=== PATIENT | male | born 1950 | race Caucasian/White ===

== ENCOUNTER 2018-07-11 23:00 | Inpatient (IN) | payer MEDICARE ==
[~2018-07-11] VITALS: Ht 193 cm; Wt 137.0 kg
[2018-07-11 23:21] LABS: BASO # 0.1 x10^3/uL (0.0-0.2); BASO % 1 % (0-3); EOS # 0.2 x10^3/uL (0.0-0.7); EOS % 3 % (0-3); HEMOGLOBIN 15.4 g/dL (13.0-17.5); LYMPH # 1.6 x10^3/uL (1.0-4.8); LYMPH % 20 % (24-48); MEAN CORPUSCULAR HEMOGLOBIN 30 pg (25-35); MEAN CORPUSCULAR HGB CONC 34 g/dL (31-37); MEAN CORPUSCULAR VOLUME 86 fL (79-100); MONO # 0.6 x10^3/uL (0.0-1.1); MONO % 8 % (0-9); NEUT # 5.5 x10^3uL (1.8-7.7); NEUT % 68 % (31-73); PLATELET COUNT 190 x10^3/uL (140-400); RED BLOOD COUNT 5.22 x10^6/uL (4.30-5.70); RED CELL DISTRIBUTION WIDTH 14.4 % (11.5-14.5)
--- NOTE | 2018-07-11 23:28 | PHYS DOC ---
Adult General Chief Complaint Chief Complaint: TRAUMA ALERT HPI HPI Patient is a 68 yo diabetic male who presents w/ EMS after falling on ice in a parking lot across from a family member's home around 2200. He reports that he did hit his head but did not lose consciousness. Patient also reports he is on eliquis following DVT in R leg 2 months prior and aspirin. He admits to some etoh use this evening and last ate at 1999. He reports he has diabetes and has significant neuropathy, therefore he is complaining of minimal pain. Per EMS patient tried to walk following accident, however he noticed his left foot felt odd. Family called EMS and patient was transported to ED. Review of Systems Review of Systems Constitutional: Denies fever or chills [] Respiratory: Denies cough or shortness of breath [] Cardiovascular: Denies chest pain. Musculoskeletal: Denies back pain or joint pain [] Neurologic: Denies headache, focal weakness or sensory changes [] Complete systems were reviewed and found to be within normal limits, except as documented in this note. Current Medications Current Medications Current Medications Medications (Trade) Dose Ordered Sig/Tea Start Time Stop Time Status Last Admin Dose Admin Cefazolin Sodium/ Dextrose 50 ml @ 100 mls/hr 1X ONCE 07/11/18 23:30 07/11/18 23:59 DC 07/12/18 00:05 100 MLS/HR Diphtheria/ Tetanus/Acell Pertussis (Boostrix) 0.5 ml ONCE ONCE 07/11/18 23:30 07/11/18 23:31 DC 07/12/18 00:13 0.5 ML Etomidate (Amidate) 10 mg 1X ONCE 07/11/18 23:30 07/11/18 23:31 DC 07/12/18 01:24 10 MG Fentanyl Citrate (Fentanyl 2ml Vial) 100 mcg 1X ONCE 07/12/18 02:00 07/12/18 02:01 DC 07/12/18 01:23 100 MCG Sodium Chloride 1,000 ml @ 1,000 mls/hr 1X ONCE 07/12/18 02:00 07/12/18 02:59 DC 07/12/18 01:27 1,000 MLS/HR Allergies Allergies Allergies Coded Allergies Type Severity Reaction Last Updated Verified No Known Drug Allergies 07/11/18 No Physical Exam Physical Exam Constitutional: Well developed, well nourished, no acute distress, non-toxic appearance. [] HENT: Normocephalic, atraumatic oropharynx moist, no oral exudates, nose normal. [] Eyes: EOMI, conjunctiva normal, no discharge. [] Neck: Normal range of motion, no tenderness, supple, no stridor. Cardiovascular:Heart rate regular rhythm, no murmur [] Lungs & Thorax: Bilateral breath sounds clear to auscultation [] Abdomen: soft, no tenderness, no masses, no pulsatile masses. [] Skin: Warm, dry, no erythema, no rash. [] Extremities: Open dislocation L ankle with medial displacement of medial malleolus. L foot externally rotated. PT and DP pulses 2/4. Neurologic: Alert and oriented X 3 Current Patient Data Vital Signs Vital Signs Date Time Temp Pulse Resp B/P (MAP) Pulse Ox O2 Delivery O2 Flow Rate FiO2 07/12/18 02:00 92 16 145/65 (91) 96 Nasal Cannula 2.0 07/12/18 01:25 98.5 98.4 Lab Values Laboratory Tests Test 07/11/18 23:05 07/12/18 01:19 White Blood Count 8.0 x10^3/uL (4.0-11.0) Red Blood Count 5.22 x10^6/uL (4.30-5.70) Hemoglobin 15.4 g/dL (13.0-17.5) Hematocrit 45.0 % (39.0-53.0) Mean Corpuscular Volume 86 fL (79-100) Mean Corpuscular Hemoglobin 30 pg (25-35) Mean Corpuscular Hemoglobin Concent 34 g/dL (31-37) Red Cell Distribution Width 14.4 % (11.5-14.5) Platelet Count 190 x10^3/uL (140-400) Neutrophils (%) (Auto) 68 % (31-73) Lymphocytes (%) (Auto) 20 % (24-48) L Monocytes (%) (Auto) 8 % (0-9) Eosinophils (%) (Auto) 3 % (0-3) Basophils (%) (Auto) 1 % (0-3) Neutrophils # (Auto) 5.5 x10^3uL (1.8-7.7) Lymphocytes # (Auto) 1.6 x10^3/uL (1.0-4.8) Monocytes # (Auto) 0.6 x10^3/uL (0.0-1.1) Eosinophils # (Auto) 0.2 x10^3/uL (0.0-0.7) Basophils # (Auto) 0.1 x10^3/uL (0.0-0.2) Prothrombin Time 13.6 SEC (11.7-14.0) Prothrombin Time INR 1.1 (0.8-1.1) PTT 35 SEC (24-38) Sodium Level 137 mmol/L (136-145) Potassium Level 4.1 mmol/L (3.5-5.1) Chloride Level 102 mmol/L (98-107) Carbon Dioxide Level 23 mmol/L (21-32) Anion Gap 12 (6-14) Blood Urea Nitrogen 47 mg/dL (8-26) H Creatinine 1.8 mg/dL (0.7-1.3) H Estimated GFR (Cockcroft-Gault) 37.9 BUN/Creatinine Ratio 26 (6-20) H Glucose Level 122 mg/dL (70-99) H Calcium Level 9.7 mg/dL (8.5-10.1) Magnesium Level 1.7 mg/dL (1.8-2.4) L Total Bilirubin 0.4 mg/dL (0.2-1.0) Aspartate Amino Transferase (AST) 39 U/L (15-37) H Alanine Aminotransferase (ALT) 54 U/L (16-63) Alkaline Phosphatase 109 U/L (46-116) Creatine Kinase 364 U/L (39-308) H Creatine Kinase MB (Mass) 13.9 ng/mL (0.0-3.6) H Creatine Kinase MB Relative Index 3.8 % (0-4) Troponin I Quantitative < 0.017 ng/mL (0.000-0.055) Total Protein 7.6 g/dL (6.4-8.2) Albumin 3.8 g/dL (3.4-5.0) Albumin/Globulin Ratio 1.0 (1.0-1.7) Glucose (Fingerstick) 113 mg/dL (70-99) H Laboratory Tests 07/11/18 23:05 Laboratory Tests 07/11/18 23:05 EKG EKG @2345 NSR at 92bpm, NO ST elevation, baseline artifact Radiology/Procedures Radiology/Procedures PROCEDURE: CT HEAD AND CERVICAL SPINE WO Examination: CT head and cervical spine without contrast CT HEAD INDICATION: fall, pain, hx of elliquis use COMPARISON: None Available. Exposure: One or more of the following individualized dose reduction techniques were utilized for this examination: 1. Automated exposure control 2. Adjustment of the mA and/or kV according to patient size 3. Use of iterative reconstruction technique TECHNIQUE: 5 mm contiguous axial images were obtained from the skull base to the vertex in both bone and soft tissue algorithm. FINDINGS: No abnormal attenuation within the brain parenchyma. No evidence of acute intracranial hemorrhage. No extra-axial fluid collections. No mass effect or midline shift. Ventricular size is appropriate. Basal cisterns are patent. No fractures identified.Mirza-white differentiation is preserved.Globes and orbits are within normal limits. Minimal opacification of the left mastoid air cells. Small mucous retention cyst or polyp right maxillary sinus. IMPRESSION: 1. No acute findings. 2. Mild opacification the left mastoid air cells could be secondary to fluid, otitis media or mastoiditis without coalescence. CT CERVICAL SPINE INDICATION: fall, pain, hx of elliquis use COMPARISON: None Available. Technique: 2.5 mm contiguous axial images were obtained from the skull base through the cervicothoracic junction in both bone and soft tissue algorithm. Additional sagittal and coronal reconstructions were also performed. FINDINGS: Vertebral body height and alignment are maintained. Cervical lordosis is preserved. The lateral masses of C1 are aligned upon C2. No fractures identified. The bony canal is patent throughout. Mild intervertebral disc height loss identified in the cervical spine likely degeneration particularly at time C3-C4, C4-C5, C5-C6 and C6-C7 vertebral levels.. The paraspinous soft tissues are unremarkable. Visualized intracranial contents are unremarkable. Lung apices are clear. IMPRESSION: 1. No acute fracture the cervical spine. Correlate clinically.. 2. Mild degenerative changes cervical spine. Electronically signed by: Roman Butler MD (07/12/2018 12:06 AM) [facility] PROCEDURE: ANKLE LEFT 2V Examination: 2 views of the left ankle HISTORY: History of open deformity, fall COMPARISON: None available. FINDINGS: There is dislocation of the ankle joint with the talus dislocated laterally and posteriorly in relation to the tibial plafond. The tibial plafond appears to project outside the skin. There is displaced comminuted fracture of the distal fibula. There is widening of the tibiofibular syndesmosis. IMPRESSION: Ankle dislocation and fractures as described above. Electronically signed by: Roman Butler MD (07/12/2018 3:59 AM) [facility] PROCEDURE: ANKLE LEFT 3V Examination: 3 views of the left ankle HISTORY: History of reduction Comparison: 07/11/2018. Findings/ impression: There is interval reduction of the ankle dislocation with the talus now in alignment with the tibial plafond. Cast obscures fine bony detail. Comminuted nondisplaced fracture of the distal fibula. Possible avulsion fracture of the anterior tibial plafond. Electronically signed by: Roman Butler MD (07/12/2018 4:01 AM) [facility] [place] Course & Med Decision Making Course & Med Decision Making Patient is 68 yo male w/ PMH DM, DVT, HTN and renal insufficiency who fell on a patch of ice after leaving a family member's house. Patient admits to hitting his head but denies LOC. He also reports he is on blood thinner. Patient was transported to ED via EMS and received morphine en route. On physical exam patient was in no acute distress, hypertensive, with 10cm laceration to medial aspect of L ankle with exposed medial malleolus and external rotation of L foot. PT and DP pulses present on presentation. CT head revealed no acute process. CXR unremarkable for acute process. Preliminary reading L ankle xray reveal dislocation of medial malleolus and fracture of distal fibula, which correlated with clinical exam. Patient received ancef, tetanus booster, and fentanyl. Wound cleaned with 1L NS and successfully reduced and splinted under conscious sedation. Patient tolerated procedure well. Consulted orthopedic surgery (Laith) who agreed to admit patient and proceed with surgery. Dragon Disclaimer Dragon Disclaimer This electronic medical record was generated, in whole or in part, using a voice recognition dictation system. Splinting Splinting : Location: L ankle Hand-Made Type: orthoglass Splint: sugar-tong (and posterior OCL) Pre-Proc Neuro Vasc Exam: normal Post-Proc Neuro Vasc Exam: normal, unchanged from pre-exam Additional Procedures Progress Fracture/dislocation reduction L ankle Written consent obtained from patient. Time out completed. moderate sedation utilized with 10mg etomidate and 100 mcg fentanyl IV, both pushed by ER physician. Wound previously irrigated with 1L NS. Once patient sedated traction/ countertraction utilized with manipulation and successful reduction of L ankle fracture/dislocation. Vascularity still intact. Wound with moderate hemorrhage, suctioned. Wound further cleaned with chloroprep sponge. Dressing applied with xeroform gauze, telfa, 4x4 gauze, ABD pad, and kerlex. A sugar tong and posterior OCL splint applied. Patient tolerated procedure well and without difficulty. Departure Departure Impression: Primary Impression: Fracture dislocation of left ankle Disposition: ADMITTED INPATIENT Admitting Physician: Other (Obiozor) Condition: STABLE Referrals: NO PCP (PCP) MODERATE SEDATION ASSESSMENT RISKS/ALTERNATIVES Risks/Alternatives Risks and alternatives of this type of sedation and procedure discussed with: RISK/ALTERNATIVES: Patient H & P ON CHART H & P H & P on chart and reviewed for co-morbid conditions and appropriate labs. H&P ON CHART: Yes STATUS PREG STATUS ASSESSED: N/A MEDS/ALLERGIES REVIEWED Meds/Allergies Reviewed Medications and Allergies including time and route of recently administered narcotics and sedatives. MEDS/ALLERGIES REVIEWED: Yes ASA RATING ASA RATING: III AIRWAY ASSESSMENT Airway Assessment Airway patency, oral function limitations, presence of caps, crowns, dentures, partials, and ability to extend neck assessed. AIRWAY ASSESSMENT: Yes MALLAMPATI SCORE MALLAMPATI SCORE: II PRE-SEDATION ASSESSMENT PRE-SEDATION ASSESSMENT: Yes Problem Qualifiers Primary Impression: Fracture dislocation of left ankle Encounter type: initial encounter Fracture type: open Open fracture type: open type III Qualified Codes: S82.892C - Other fracture of left lower leg, initial encounter for open fracture type IIIA, IIIB, or IIIC DEVIN RAINEY DO Jul 11, 2018 23:28
[2018-07-11] MEDS ORDERED: fentaNYL PF VIAL 100 MCG/2 ML VIAL IV ONE (23:30)
[2018-07-11] MEDS ORDERED: ETOMIDATE 20 MG/10 ML VIAL. IV ONE (23:30)
[2018-07-11] MEDS ORDERED: DIPHTH,PERTUSS(ACELL),TET TOX 0.5 ML DISP.SYRIN. VAX IM ONE (23:30)
[2018-07-11] MEDS ORDERED: IV NORMAL SALINE 1000ML BAG 1,000 ML IV ONE (23:30)
[2018-07-11 23:31] LABS: PROTHROMBIN TIME PATIENT 13.6 SEC (11.7-14.0)
[2018-07-11 23:38] LABS: CALCIUM 9.7 mg/dL (8.5-10.1); CREATININE 1.8 mg/dL (0.7-1.3); GFR 37.9; POTASSIUM 4.1 mmol/L (3.5-5.1)
[2018-07-11 23:44] LABS: ALBUMIN 3.8 g/dL (3.4-5.0); MAGNESIUM 1.7 mg/dL (1.8-2.4); TOTAL BILIRUBIN 0.4 mg/dL (0.2-1.0); TOTAL PROTEIN 7.6 g/dL (6.4-8.2)
[2018-07-12] VITALS (14 sets, daily range): BP systolic 123–169; BP diastolic 61–88
--- NOTE | 2018-07-12 00:10 | RAD ---
Examination: CT head and cervical spine without contrast CT HEAD INDICATION: fall, pain, hx of elliquis use COMPARISON: None Available. Exposure: One or more of the following individualized dose reduction techniques were utilized for this examination: 1. Automated exposure control 2. Adjustment of the mA and/or kV according to patient size 3. Use of iterative reconstruction technique TECHNIQUE: 5 mm contiguous axial images were obtained from the skull base to the vertex in both bone and soft tissue algorithm. FINDINGS: No abnormal attenuation within the brain parenchyma. No evidence of acute intracranial hemorrhage. No extra-axial fluid collections. No mass effect or midline shift. Ventricular size is appropriate. Basal cisterns are patent. No fractures identified.Mirza-white differentiation is preserved.Globes and orbits are within normal limits. Minimal opacification of the left mastoid air cells. Small mucous retention cyst or polyp right maxillary sinus. IMPRESSION: 1. No acute findings. 2. Mild opacification the left mastoid air cells could be secondary to fluid, otitis media or mastoiditis without coalescence. CT CERVICAL SPINE INDICATION: fall, pain, hx of elliquis use COMPARISON: None Available. Technique: 2.5 mm contiguous axial images were obtained from the skull base through the cervicothoracic junction in both bone and soft tissue algorithm. Additional sagittal and coronal reconstructions were also performed. FINDINGS: Vertebral body height and alignment are maintained. Cervical lordosis is preserved. The lateral masses of C1 are aligned upon C2. No fractures identified. The bony canal is patent throughout. Mild intervertebral disc height loss identified in the cervical spine likely degeneration particularly at time C3-C4, C4-C5, C5-C6 and C6-C7 vertebral levels.. The paraspinous soft tissues are unremarkable. Visualized intracranial contents are unremarkable. Lung apices are clear. IMPRESSION: 1. No acute fracture the cervical spine. Correlate clinically.. 2. Mild degenerative changes cervical spine. Electronically signed by: Roman Butler MD (07/12/2018 12:06 AM) [facility]
[2018-07-12] MEDS ORDERED: fentaNYL PF VIAL 100 MCG/2 ML VIAL IV ONE (02:00)
[2018-07-12] MEDS ORDERED: IV NORMAL SALINE 1000ML BAG 1,000 ML IV ONE (02:00)
[2018-07-12] MEDS ORDERED: fentaNYL PF VIAL 100 MCG/2 ML VIAL IV PRN ×4 (02:30→04:45)
[2018-07-12] MEDS ORDERED: ONDANSETRON PF 4 MG/2 ML VIAL. IV PRN ×3 (02:30→04:45)
[2018-07-12] MEDS ORDERED: DEXTROSE 50% 25 GM / 50ML DISP.SYRIN. IV PRN ×2 (02:30→04:45)
--- NOTE | 2018-07-12 04:03 | RAD ---
Examination: 2 views of the left ankle HISTORY: History of open deformity, fall COMPARISON: None available. FINDINGS: There is dislocation of the ankle joint with the talus dislocated laterally and posteriorly in relation to the tibial plafond. The tibial plafond appears to project outside the skin. There is displaced comminuted fracture of the distal fibula. There is widening of the tibiofibular syndesmosis. IMPRESSION: Ankle dislocation and fractures as described above. Electronically signed by: Roman Butler MD (07/12/2018 3:59 AM) [facility]
--- NOTE | 2018-07-12 04:05 | RAD ---
Examination: 3 views of the left ankle HISTORY: History of reduction Comparison: 07/11/2018. Findings/ impression: There is interval reduction of the ankle dislocation with the talus now in alignment with the tibial plafond. Cast obscures fine bony detail. Comminuted nondisplaced fracture of the distal fibula. Possible avulsion fracture of the anterior tibial plafond. Electronically signed by: Roman Butler MD (07/12/2018 4:01 AM) [facility]
--- NOTE | 2018-07-12 04:13 | RAD ---
EXAM: CHEST 1 VIEW History: Preoperative COMPARISON: None available. TECHNIQUE: Single portable radiograph of the chest FINDINGS: The cardiac silhouette is unremarkable. The lungs are clear bilaterally. The costophrenic sulci are clear and well demarcated. IMPRESSION: No radiographic evidence of an acute cardiopulmonary process. Electronically signed by: Roman Butler MD (07/12/2018 4:08 AM) [facility]
[2018-07-12] MEDS ORDERED: LIDOCAINE 2% PF Vial for OR 5 ML VIAL. ONE (04:34)
[2018-07-12] MEDS ORDERED: SUCCINYLCHOLINE 200 MG/10 ML VIAL. ONE (04:34)
[2018-07-12] MEDS ORDERED: ONDANSETRON PF 4 MG/2 ML VIAL. ONE (04:34)
[2018-07-12] MEDS ORDERED: PROPOFOL 20 ML IV ONE ×2 (04:34→06:51)
[2018-07-12] MEDS ORDERED: DEXAMETHASONE SOD PHOS 20 MG/5 ML VIAL. ONE (04:34)
[2018-07-12] MEDS ORDERED: fentaNYL PF VIAL 100 MCG/2 ML VIAL ONE (04:37)
[2018-07-12] MEDS ORDERED: MORPHINE SULFATE 2 MG/ML VIAL. IV PRN (04:45)
[2018-07-12] MEDS ORDERED: PROCHLORPERAZINE 10 MG/2 ML VIAL. IV PRN (04:45)
[2018-07-12] MEDS ORDERED: POLYETHYLENE GLYCOL 3350 17 GM PACKET. PO PRN (04:45)
[2018-07-12] MEDS ORDERED: IV RINGERS,LACTATED 1000ML 1,000 ML IV SCH (04:45)
[2018-07-12] MEDS ORDERED: HYDROcodone/APAP 7.5/325MG 1 TAB TABLET PO PRN ×2 (04:45)
[2018-07-12] MEDS ORDERED: oxyCODONE IR 5 MG TABLET PO PRN (04:45)
[2018-07-12] MEDS ORDERED: MORPHINE SULFATE 4 MG/ML VIAL. IV PRN ×2 (04:45)
[2018-07-12] MEDS ORDERED: HYDROmorphone 2 MG/ML VIAL IV PRN (04:45)
[2018-07-12] MEDS ORDERED: LIDOCAINE 1% PF 2 ML VIAL. ID PRN (04:45)
--- NOTE | 2018-07-12 05:25 | NUR ---
Patient off unit for surgical procedure.
[2018-07-12] MEDS ORDERED: ROCURONIUM 50 MG/5 ML VIAL. ONE (05:27)
--- NOTE | 2018-07-12 05:28 | NUR ---
Report given to this RN from Gin in the Emergency Department. Patient arrived to unit at 0251 via hospital bed accompanied by his Lali and one green bag containing the patients belongings. Patient admitted for left open ankle fracture. Upon arrival left ankle wrapped and splinted by Emergency Department with instructions not remove due to anticipated early AM surgical intervention with Dr. Ozuna. Patient complaint of pain is 0/10 rating. Patient orientated to unit, bed placed in lowest position and locked. Will continue to monitor.
[2018-07-12] MEDS ORDERED: APIX5TAB PO (05:53)
[2018-07-12] MEDS ORDERED: INSU100I32 SQ (05:53)
[2018-07-12] MEDS ORDERED: PATI8.4P PO (05:53)
[2018-07-12] MEDS ORDERED: AMLO5TAB7 PO (05:53)
[2018-07-12] MEDS ORDERED: CHOL100013 PO (05:53)
[2018-07-12] MEDS ORDERED: HYDR12.58 PO (05:53)
[2018-07-12] MEDS ORDERED: INSU100C SQ ×2 (05:53)
[2018-07-12] MEDS ORDERED: ATOR40TA59 PO (05:53)
[2018-07-12] MEDS ORDERED: DULA1.5P SQ (05:53)
[2018-07-12] MEDS ORDERED: LISI-130 PO (05:53)
[2018-07-12] MEDS ORDERED: ASPI-630 PO (05:53)
[2018-07-12] MEDS ORDERED: ceFAZolin SODIUM 1 GM VIAL ONE (06:18)
[2018-07-12] MEDS ORDERED: ePHEDrine PF IN SALINE 50 MG/5 ML DISP.SYRIN IV ONE (06:21)
[2018-07-12] MEDS ORDERED: SEVOFLURANE 61 TO 120 MINUTES. IH ONE ×2 (06:22→06:51)
[2018-07-12] MEDS ORDERED: KETOROLAC 30 MG/ML INJ FOR OR. INJ ONE (06:51)
[2018-07-12] MEDS ORDERED: GLYCOPYRROLATE 1 MG/5 ML VIAL. ONE (06:52)
--- NOTE | 2018-07-12 07:47 | PDOC4 ---
Operative Note Operative Note Date of surgery: 07/12/2018 Preoperative diagnosis: Open left ankle fracture dislocation Postoperative diagnosis: Same with small isolated cartilage defect talar dome and syndesmotic disruption Operative procedure: Irrigation debridement open medial wound with fixation of fibular shaft fracture and syndesmotic fixation 2 screws Surgeon: Laith Anesthesia: Gen. Estimated blood loss: 50 mL Tourniquet time approximately 1 hour Complications: None Operative indications: Patient is a 68-year-old male with diabetes who sustained an open ankle fracture dislocation and presented to the emergency department early this morning with antibiotics washout and a provisional reduction. His history is covered thoroughly in my dictated consultation and significant for a DVT being treated on Eliquis. I went over with the patient and his the risks benefits postoperative course of the urgent open treatment of his ankle fracture with expected fixation of the fibula and syndesmosis. The fact that the syndesmosis screws would likely need to be removed probably about 3-4 months postoperatively following healing. There is of potential with those could break and increased risk of infection or nonhealing particularly with the open fracture and diabetes. We also talked about possibility of nerve or blood vessel damage medical or other anesthetic complications continued pain among others all his questions were answered he wishes to proceed with surgical evaluation and treatment which was done urgently as soon as the emergent or case was finished. Operative text: Patient was identified procedure verified patient placed in the supine position on the operating table. After adequate amounts of general anesthesia were administered the left lower extremity was prepped and draped in standard sterile fashion with a thigh tourniquet. Debridement of damaged skin and subcutaneous tissue was carried out sharply no gross contamination was noted thorough irrigation carried out with normal saline solution and pulse lavage. He was noted to have a isolated proximally 1 cm defect of the talar dome from a shear injury to the cartilage. That free cartilage fragment was removed as it was loose in the joint and attention was turned following the debridement to the distal fibula fixation where a lateral incision was made subperiosteal dissection was carried out and a 10 hole Kinza distal fibular locking plate was placed and provisional fixation placed inferiorly under fluoroscopic guidance. The fibular fracture was then reduced and a combination of cortical nonlocking screws plus distal 2.7 locking screws were placed with excellent fixation of the fracture site. A total of 2 syndesmotic screws were placed through the plate with the syndesmosis reduced anatomically and the ankle held in maximum dorsiflexion. Excellent alignment of the fracture site and ankle joint mortise and hardware was noted under multiple fluoroscopic views. Thorough irrigation again carried out normal saline solution bleeding points controlled by electrocautery closure was accomplished with buried Vicryl suture on the lateral incision buried 2-0 PDS suture on the medial incision skin closure with kevin. Sterile dressings with Xeroform gauze 4 x 4's ABDs and well padded posterior splint was then placed followed by an Matias wrap toes were noted be warm pink find deflation of tourniquet after approximately 1 hour tourniquet time patient was returned to recovery room in stable condition having tolerated procedure well CHARLES HUERTAS MD Jul 12, 2018 07:47
--- NOTE | 2018-07-12 08:10 | NUR ---
Pt arrived to unit from PACU. A&Ox4, VSS, denies pain at this time, states LLE just feels heavy, denies numbness or tingling to extremity, able to toes appropriately. at bedside. LLE surgical dressing CDI. Will continue to monitor closely.
--- NOTE | 2018-07-12 08:18 | CONS ---
DATE OF CONSULTATION: 07/12/2018 ORTHOPEDIC CONSULTATION AND PREOPERATIVE HISTORY AND PHYSICAL REQUESTING PHYSICIAN: Yogesh Myers DO. REASON FOR CONSULTATION: Open left ankle fracture. HISTORY OF PRESENT ILLNESS: The patient is a 68-year-old male who was carrying a tray of some food down from a family member's house with his . They walked on a hill with some gravel on it and then into a parking lot, which was just a sheet of ice. He states that his feet went out from under him, his left ankle buckled underneath him and had the onset of pain, deformity and an open fracture with obvious deformity and bleeding. He hit his head, but denies any loss of consciousness. He was transported to the Emergency Department via EMS because he could not bear weight due to the obvious deformity. His pain is well controlled. Even in the Emergency Department, presented only about a 2 on a scale of 10 due to some diabetic neuropathy. PAST MEDICAL HISTORY: Significant for a history of DVT, one more remote and one recent due to blood clots. He is on Eliquis as a result. He says his diabetes is otherwise well controlled. ALLERGIES: He has no known drug allergies. MEDICATIONS: Medication list is reviewed. FAMILY HISTORY: Denies any significant family history. SOCIAL HISTORY: He lives with his , independently ambulatory prior to this injury. 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 Denies smoking or drug use. Occasional social alcohol consumption. REVIEW OF SYSTEMS: Significant for being on Eliquis for the blood clot. He denies any loss of consciousness, headache, visual changes, focal weakness, numbness, tingling or change in bowel or bladder function. Only notable for the open ankle fracture with some throbbing pain, inability to bear weight and obvious open injury. He denies any other joint pain, recent fever, chills, chest pain, shortness of breath or other constitutional symptoms. PHYSICAL EXAMINATION: GENERAL: On examination, this is a pleasant, cooperative male, alert and oriented, in no acute distress. VITAL SIGNS: Height 76 inches, weight 302 pounds and BMI is 36.8. Temperature 98.4, pulse 92, respirations 16, blood pressure 145/65 and 96% saturation on 2 liters of oxygen. HEENT: Atraumatic, normocephalic. HEART: Regular rate and rhythm. LUNGS: Clear to auscultation bilaterally. ABDOMEN: Benign. EXTREMITIES: Examination of the right lower extremity reveals an area that is splinted with a large medial laceration. He can wiggle his toes. He has gross deformity, but pulses are present. He has baseline sensation due to his neuropathy, basically equal to the contralateral foot where he has a bit of a stocking distribution neuropathy present. He, otherwise, has normal examination of the contralateral ankle. Normal alignment and stability of bilateral hips and knees. Full range of motion of shoulder, elbow and wrist bilaterally and no tenderness on palpation, instability or swelling present. No tenderness on palpation over the neck or back. Negative straight leg raise sign bilaterally. IMAGING STUDIES: Include a negative CT of the head and cervical spine. Ankle shows open fracture dislocation of his left ankle, with proximal to the joint distal fibula fracture. No medial malleolar fracture is noted, but his ligaments are clearly compromised and has syndesmotic injury. Post-reduction films show some medial widening, although there is a decent reduction of the fibular fracture. IMPRESSION: Open left ankle fracture dislocation. TREATMENT PLAN: I talked in detail with the patient and his about treatment options, the need for immediate washout and fixation of the fracture. I told him likely I, due to the instability of this injury, would supplement a plate with probable syndesmotic screw fixation to allow the ligaments to heal properly and keep the ankle joint in place. Those would have to be removed after ligament healing is adequate, generally at about 3 months, but could be a bit longer and his healing delayed due to diabetes. He will remain on Eliquis due to the blood clots. We talked about increased bleeding risk from that issue. However, given his risk of bleeding and then the risk of the DVT itself, we talked about the increased risk of infection due to the open fracture as well as his diabetes, the slower healing noted, possibility of nerve or blood vessel damage, nonhealing, medical or other anesthetic complications among others. We went through the postoperative course in detail, the expected mobility limitations and weightbearing restrictions, likely nonweightbearing for about 6 weeks generally. All his questions were answered. He wishes to proceed with urgent surgical evaluation and treatment which we planned for immediately when the operating room is available after the current emergency case. CHARLES J. ALEKSANDAR, MD DR: GISSEL/kirsty JOB#: [id number] / [id number]
[2018-07-12] MEDS: SENNOSIDES/DOCUSATE 8.6/50MG TABLET. PO SCH (08:49)
[2018-07-12] MEDS: ceFAZolin SODIUM 3 GM in IV DEXTROSE 5% 100ML 100 ML IV SCH ×3 (08:49→18:39)
[2018-07-12] MEDS: INSULIN LISPRO 300 UNITS/3 ML INSULN.PEN. SQ SCH ×5 (08:49→18:28)
--- NOTE | 2018-07-12 10:44 | PDOC1 ---
History and Physical Date of Admission Date of Admission DATE: 07/12/18 TIME: 10:42 Identification/Chief Complaint Chief Complaint 68 yo diabetic male who presentED w/ EMS after falling on ice in a parking lot across from a family member's home around 2200. He reports that he did hit his head but did not lose consciousness. reports he is on eliquis following DVT in R leg 2 months prior and aspirin. He admits to some etoh use this evening and last ate at 1999. He reports he has diabetes and has significant neuropathy Past Medical History Past Medical History Significant for a history of DVT, one more remote and one recent due to blood clots. He is on Eliquis He says his diabetes is well controlled. ALLERGIES: He has no known drug allergies. MEDICATIONS: Medication list is reviewed. FAMILY HISTORY: Denies any significant family history. Cardiovascular: Hyperlipidemia Past Surgical History Past Surgical History: No pertinent history Family History Family History: Hypertension Social History Smoke: <1 pack per day ALCOHOL: social Drugs: None Current Problem List Problem List Problems Medical Problems: (1) Fracture dislocation of left ankle Status: Acute Current Medications Current Medications Current Medications Sodium Chloride 1,000 ml @ 1,000 mls/hr 1X ONCE IV Last administered on at 23:59; Start 07/11/18 at 23:30; Stop 07/12/18 at 00:29; Status DC Cefazolin Sodium/ Dextrose 50 ml @ 100 mls/hr 1X ONCE IV Last administered on 07/12/18at 00:05; Start 07/11/18 at 23:30; Stop 07/11/18 at 23:59; Status DC Diphtheria/ Tetanus/Acell Pertussis (Boostrix) 0.5 ml ONCE ONCE VAX IM Last administered on 07/12/18at 00:13; Start 07/11/18 at 23:30; Stop 07/11/18 at 23:31 ; Status DC Fentanyl Citrate (Fentanyl 2ml Vial) 100 mcg 1X ONCE IV Last administered on at 23:59; Start 07/11/18 at 23:30; Stop 07/11/18 at 23:31; Status DC Etomidate (Amidate) 10 mg 1X ONCE IV Last administered on 07/12/18at 01:24; Start 07/11/18 at 23:30; Stop 07/11/18 at 23:31; Status DC Fentanyl Citrate (Fentanyl 2ml Vial) 100 mcg 1X ONCE IV Last administered on at 01:23; Start 07/12/18 at 02:00; Stop 07/12/18 at 02:01; Status DC Sodium Chloride 1,000 ml @ 1,000 mls/hr 1X ONCE IV Last administered on at 01:27; Start 07/12/18 at 02:00; Stop 07/12/18 at 02:59; Status DC Ondansetron HCl (Zofran) 4 mg PRN Q8HRS PRN IV NAUSEA/VOMITING 1ST CHOICE; Start 07/12/18 at 02:30; Stop 07/12/18 at 04:50; Status DC Fentanyl Citrate (Fentanyl 2ml Vial) 50 mcg PRN Q2HR PRN IV SEVERE PAIN; Start 07/12/18 at 02:30; Stop 07/12/18 at 04:50; Status DC Insulin Human Lispro (HumaLOG) 0-5 UNITS TIDWMEALS SQ ; Start 07/12/18 at 08:00 Dextrose (Dextrose 50%-Water Syringe) 12.5 gm PRN Q15MIN PRN IV SEE COMMENTS; Start 07/12/18 at 02:30; Stop 07/12/18 at 04:51; Status DC Propofol 20 ml @ As Directed STK-MED ONCE IV ; Start 07/12/18 at 04:34; Stop at 04:36; Status DC Lidocaine HCl (Lidocaine Pf 2% Vial) 5 ml STK-MED ONCE .ROUTE ; Start 07/12/18 at 04:34; Stop 07/12/18 at 04:36; Status DC Dexamethasone Sodium Phosphate (Decadron) 20 mg STK-MED ONCE .ROUTE ; Start at 04:34; Stop 07/12/18 at 04:36; Status DC Ondansetron HCl (Zofran) 4 mg STK-MED ONCE .ROUTE ; Start 07/12/18 at 04:34; Stop 07/12/18 at 04:36; Status DC Succinylcholine Chloride (Anectine) 200 mg STK-MED ONCE .ROUTE ; Start 07/12/18 at 04:34; Stop 07/12/18 at 04:36; Status DC Fentanyl Citrate (Fentanyl 2ml Vial) 100 mcg STK-MED ONCE .ROUTE ; Start at 04:37; Stop 07/12/18 at 04:39; Status DC Oxycodone HCl (Roxicodone) 5 mg PRN Q3HRS PRN PO MODERATE PAIN; Start 07/12/18 at 04:45 Morphine Sulfate (Morphine Sulfate) 2 mg PRN Q1HR PRN IV SEVERE PAIN; Start at 04:45 Fentanyl Citrate (Fentanyl 2ml Vial) 25 mcg PRN Q1HR PRN IV SEVERE PAIN; Start 07/12/18 at 04:45 Senna/Docusate Sodium (Senna Plus) 1 tab DAILY PO ; Start 07/12/18 at 09:00 Polyethylene Glycol (miraLAX PACKET) 17 gm PRN DAILY PRN PO CONSTIPATION 1ST CHOICE; Start 07/12/18 at 04:45 Ondansetron HCl (Zofran) 4 mg PRN Q4HRS PRN IV NAUSEA/VOMITING 1ST CHOICE; Start 07/12/18 at 04:45 Magnesium Hydroxide (Milk Of Magnesia) 2,400 mg 1X PRN PRN PO CONSTIPATION; Start 07/13/18 at 06:00; Stop 07/14/18 at 05:59 Bisacodyl (Dulcolax Supp) 10 mg 1X PRN PRN IN CONSTIPATION; Start 07/13/18 at 16:00; Stop 07/14/18 at 15:59 Acetaminophen/ Hydrocodone Bitart (Lortab 7.5/325) 1 tab PRN Q4HRS PRN PO MODERATE PAIN; Start 07/12/18 at 04:45 Morphine Sulfate (Morphine Sulfate) 4 mg PRN Q2HR PRN IV SEVERE PAIN; Start at 04:45 Acetaminophen/ Hydrocodone Bitart (Lortab 7.5/325) 2 tab PRN Q4HRS PRN PO SEVERE PAIN; Start 07/12/18 at 04:45 Dextrose (Dextrose 50%-Water Syringe) 12.5 gm PRN Q15MIN PRN IV SEE COMMENTS; Start 07/12/18 at 04:45 Cefazolin Sodium 3 gm/Dextrose 100 ml @ 200 mls/hr Q6H IV ; Start 07/12/18 at 06:00; Stop 07/12/18 at 18:29 Ondansetron HCl (Zofran) 4 mg PRN Q6HRS PRN IV NAUSEA/VOMITING; Start 07/12/18 at 04:45; Stop 07/13/18 at 04:44 Fentanyl Citrate (Fentanyl 2ml Vial) 25 mcg PRN Q5MIN PRN IV MILD PAIN; Start 07/12/18 at 04:45; Stop 07/13/18 at 04:44 Fentanyl Citrate (Fentanyl 2ml Vial) 50 mcg PRN Q5MIN PRN IV MODERATE TO SEVERE PAIN; Start 07/12/18 at 04:45; Stop 07/13/18 at 04:44 Morphine Sulfate (Morphine Sulfate) 1 mg PRN Q10MIN PRN IV SEVERE PAIN; Start 07/12/18 at 04:45; Stop 07/13/18 at 04:44 Ringer's Solution 1,000 ml @ 30 mls/hr Q24H IV ; Start 07/12/18 at 04:45; Stop 07/12/18 at 16:44 Lidocaine HCl (Xylocaine-Mpf 1% 2ml Vial) 2 ml PRN 1X PRN ID PRIOR TO IV START ; Start 07/12/18 at 04:45; Stop 07/13/18 at 04:44 Hydromorphone HCl (Dilaudid) 0.5 mg PRN Q10MIN PRN IV SEV PAIN, Second choice; Start 07/12/18 at 04:45; Stop 07/13/18 at 04:44 Prochlorperazine Edisylate (Compazine) 5 mg PACU PRN PRN IV NAUSEA, MRX1; Start 07/12/18 at 04:45; Stop 07/13/18 at 04:44 Rocuronium [place] (Zemuron) 50 mg STK-MED ONCE .ROUTE ; Start 07/12/18 at 05:27 ; Stop 07/12/18 at 05:29; Status DC Cefazolin Sodium (Ancef) 1 gm STK-MED ONCE .ROUTE ; Start 07/12/18 at 06:18; Stop 07/12/18 at 06:21; Status DC Ephedrine Sulfate (ePHEDrine PF IN SALINE SYRINGE) 50 mg STK-MED ONCE IV ; Start 07/12/18 at 06:21; Stop 07/12/18 at 06:23; Status DC Sevoflurane (Ultane) 60 ml STK-MED ONCE IH ; Start 07/12/18 at 06:22; Stop 07/12 at 06:24; Status DC Ketorolac Tromethamine (Toradol For Or Only) 30 mg STK-MED ONCE INJ ; Start at 06:51; Stop 07/12/18 at 06:52; Status DC Sevoflurane (Ultane) 60 ml STK-MED ONCE IH ; Start 07/12/18 at 06:51; Stop 07/12 at 06:53; Status DC Propofol 20 ml @ As Directed STK-MED ONCE IV ; Start 07/12/18 at 06:51; Stop at 06:53; Status DC Glycopyrrolate (Robinul) 1 mg STK-MED ONCE .ROUTE ; Start 07/12/18 at 06:52; Stop 07/12/18 at 06:54; Status DC Active Scripts Active Reported Humalog (Insulin Lispro) 100 Unit/1 Ml Cartridge 12 Unit SQ NOON Humalog (Insulin Lispro) 100 Unit/1 Ml Cartridge 14 Unit SQ BID76 Eliquis (Apixaban) 5 Mg Tablet 5 Mg PO BID Vitamin D (Cholecalciferol (Vitamin D3)) 1,000 Unit Capsule 2 Cap PO DAILY Veltassa (Patiromer Calcium Sorbitex) 8.4 Gm Powd.pack 8.4 Gm PO DAILY Trulicity (Dulaglutide) 1.5 Mg/0.5 Ml Pen.injctr 1.5 Mg SQ WEEKLY Lisinopril 40 Mg Tablet 1 Tab PO DAILY Hydrochlorothiazide Tablet (Hydrochlorothiazide) 12.5 Mg Tablet 25 Mg PO DAILY Basaglar Kwikpen U-100 (Insulin Glargine,Hum.rec.anlog) 100 Unit/1 Ml Insuln.pen 30 Unit SQ DAILY08 Atorvastatin Calcium 40 Mg Tablet 1 Tab PO DAILY Aspirin 81 Mg Tab.chew 1 Tab PO DAILY Amlodipine Besylate 5 Mg Tablet 5 Mg PO DAILY Allergies Allergies: Coded Allergies: No Known Drug Allergies (Unverified , 07/11/18) ROS Review of System Review of Systems Review of Systems Constitutional: Denies fever or chills [] Respiratory: Denies cough or shortness of breath [] Cardiovascular: Denies chest pain. Musculoskeletal: Denies back pain or joint pain SEE hpi[] Neurologic: Denies headache, focal weakness or sensory changes [] 14 PT systems were reviewed and found to be within normal limits, except as documented Cardiovascular: No Chest Pain, No Palpitations, No Orthopnea, No Paroxysmal Noc. Dyspnea, No Edema, No Lt Headedness, No Other Physical Exam Physical Exam Physical Exam Physical Exam Constitutional: Well developed, well nourished, no acute distress, non-toxic appearance. [] HENT: Normocephalic, atraumatic oropharynx moist, no oral exudates, nose normal. [] Eyes: EOMI, conjunctiva normal, no discharge. [] Neck: Normal range of motion, no tenderness, supple, no stridor. Cardiovascular:Heart rate regular rhythm, no murmur [] Lungs & Thorax: Bilateral breath sounds clear to auscultation [] Abdomen: soft, no tenderness, no masses, no pulsatile masses. [] Skin: Warm, dry, no erythema, no rash. [] Extremities: Open dislocation L ankle with medial displacement of medial malleolus. L foot externally rotated. PT and DP pulses 2/4. Neurologic: Alert and oriented X 3 General: Alert, Oriented X3, Cooperative HEENT: Atraumatic, PERRLA Lungs: Clear to auscultation Breasts: Not examined Abdomen: Normal bowel sounds, Soft Extremities: No clubbing, No cyanosis Neuro: Normal speech, Cranial nerves 3-12 NL Psych/Mental Status: Mental status NL, Mood NL Vitals Vitals Vital Signs Date Time Temp Pulse Resp B/P (MAP) Pulse Ox O2 Delivery O2 Flow Rate FiO2 07/12/18 09:30 97 18 148/73 (98) 94 Room Air 07/12/18 09:00 2.0 07/12/18 07:49 98.9 98.9 Labs Labs Laboratory Tests Test 07/11/18 23:05 07/12/18 01:19 07/12/18 07:29 White Blood Count 8.0 x10^3/uL (4.0-11.0) Red Blood Count 5.22 x10^6/uL (4.30-5.70) Hemoglobin 15.4 g/dL (13.0-17.5) Hematocrit 45.0 % (39.0-53.0) Mean Corpuscular Volume 86 fL (79-100) Mean Corpuscular Hemoglobin 30 pg (25-35) Mean Corpuscular Hemoglobin Concent 34 g/dL (31-37) Red Cell Distribution Width 14.4 % (11.5-14.5) Platelet Count 190 x10^3/uL (140-400) Neutrophils (%) (Auto) 68 % (31-73) Lymphocytes (%) (Auto) 20 % (24-48) Monocytes (%) (Auto) 8 % (0-9) Eosinophils (%) (Auto) 3 % (0-3) Basophils (%) (Auto) 1 % (0-3) Neutrophils # (Auto) 5.5 x10^3uL (1.8-7.7) Lymphocytes # (Auto) 1.6 x10^3/uL (1.0-4.8) Monocytes # (Auto) 0.6 x10^3/uL (0.0-1.1) Eosinophils # (Auto) 0.2 x10^3/uL (0.0-0.7) Basophils # (Auto) 0.1 x10^3/uL (0.0-0.2) Prothrombin Time 13.6 SEC (11.7-14.0) Prothromb Time International Ratio 1.1 (0.8-1.1) Activated Partial Thromboplast Time 35 SEC (24-38) Sodium Level 137 mmol/L (136-145) Potassium Level 4.1 mmol/L (3.5-5.1) Chloride Level 102 mmol/L (98-107) Carbon Dioxide Level 23 mmol/L (21-32) Anion Gap 12 (6-14) Blood Urea Nitrogen 47 mg/dL (8-26) Creatinine 1.8 mg/dL (0.7-1.3) Estimated GFR (Cockcroft-Gault) 37.9 BUN/Creatinine Ratio 26 (6-20) Glucose Level 122 mg/dL (70-99) Calcium Level 9.7 mg/dL (8.5-10.1) Magnesium Level 1.7 mg/dL (1.8-2.4) Total Bilirubin 0.4 mg/dL (0.2-1.0) Aspartate Amino Transf (AST/SGOT) 39 U/L (15-37) Alanine Aminotransferase (ALT/SGPT) 54 U/L (16-63) Alkaline Phosphatase 109 U/L (46-116) Creatine Kinase 364 U/L (39-308) Creatine Kinase MB (Mass) 13.9 ng/mL (0.0-3.6) Creatine Kinase MB Relative Index 3.8 % (0-4) Troponin I Quantitative < 0.017 ng/mL (0.000-0.055) Total Protein 7.6 g/dL (6.4-8.2) Albumin 3.8 g/dL (3.4-5.0) Albumin/Globulin Ratio 1.0 (1.0-1.7) Glucose (Fingerstick) 113 mg/dL (70-99) 140 mg/dL (70-99) Laboratory Tests Test 07/11/18 23:05 07/12/18 01:19 07/12/18 07:29 White Blood Count 8.0 x10^3/uL (4.0-11.0) Red Blood Count 5.22 x10^6/uL (4.30-5.70) Hemoglobin 15.4 g/dL (13.0-17.5) Hematocrit 45.0 % (39.0-53.0) Mean Corpuscular Volume 86 fL (79-100) Mean Corpuscular Hemoglobin 30 pg (25-35) Mean Corpuscular Hemoglobin Concent 34 g/dL (31-37) Red Cell Distribution Width 14.4 % (11.5-14.5) Platelet Count 190 x10^3/uL (140-400) Neutrophils (%) (Auto) 68 % (31-73) Lymphocytes (%) (Auto) 20 % (24-48) Monocytes (%) (Auto) 8 % (0-9) Eosinophils (%) (Auto) 3 % (0-3) Basophils (%) (Auto) 1 % (0-3) Neutrophils # (Auto) 5.5 x10^3uL (1.8-7.7) Lymphocytes # (Auto) 1.6 x10^3/uL (1.0-4.8) Monocytes # (Auto) 0.6 x10^3/uL (0.0-1.1) Eosinophils # (Auto) 0.2 x10^3/uL (0.0-0.7) Basophils # (Auto) 0.1 x10^3/uL (0.0-0.2) Prothrombin Time 13.6 SEC (11.7-14.0) Prothromb Time International Ratio 1.1 (0.8-1.1) Activated Partial Thromboplast Time 35 SEC (24-38) Sodium Level 137 mmol/L (136-145) Potassium Level 4.1 mmol/L (3.5-5.1) Chloride Level 102 mmol/L (98-107) Carbon Dioxide Level 23 mmol/L (21-32) Anion Gap 12 (6-14) Blood Urea Nitrogen 47 mg/dL (8-26) Creatinine 1.8 mg/dL (0.7-1.3) Estimated GFR (Cockcroft-Gault) 37.9 BUN/Creatinine Ratio 26 (6-20) Glucose Level 122 mg/dL (70-99) Calcium Level 9.7 mg/dL (8.5-10.1) Magnesium Level 1.7 mg/dL (1.8-2.4) Total Bilirubin 0.4 mg/dL (0.2-1.0) Aspartate Amino Transf (AST/SGOT) 39 U/L (15-37) Alanine Aminotransferase (ALT/SGPT) 54 U/L (16-63) Alkaline Phosphatase 109 U/L (46-116) Creatine Kinase 364 U/L (39-308) Creatine Kinase MB (Mass) 13.9 ng/mL (0.0-3.6) Creatine Kinase MB Relative Index 3.8 % (0-4) Troponin I Quantitative < 0.017 ng/mL (0.000-0.055) Total Protein 7.6 g/dL (6.4-8.2) Albumin 3.8 g/dL (3.4-5.0) Albumin/Globulin Ratio 1.0 (1.0-1.7) Glucose (Fingerstick) 113 mg/dL (70-99) 140 mg/dL (70-99) Images Images Examination: 2 views of the left ankle HISTORY: History of open deformity, fall COMPARISON: None available. FINDINGS: There is dislocation of the ankle joint with the talus dislocated laterally and posteriorly in relation to the tibial plafond. The tibial plafond appears to project outside the skin. There is displaced comminuted fracture of the distal fibula. There is widening of the tibiofibular syndesmosis. IMPRESSION: Ankle dislocation and fractures as described above. Electronically signed by: Roman Butler MD (07/12/2018 3:59 AM) [facility] [id number] DICTATED and SIGNED BY: ROMAN BUTLER MD DATE: 07/12/18 0357 VTE Prophylaxis Ordered VTE Prophylaxis Devices: Contraindicated VTE Pharmacological Prophylaxi: Yes Assessment/Plan Assessment/Plan IMPRESSION Open left ankle fracture dislocation. dislocation of the ankle joint with the talus dislocated laterally and posteriorly in relation to the tibial plafond. 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 ON ICE diabetes hypertension PLAN TO OR 07/11 hold eliquis until ortho approves RAYMOND GAMEZ MD Jul 12, 2018 10:44
[2018-07-12] MEDS: CHOLECALCIFEROL (VITAMIN D3) 1,000 UNIT TABLET PO SCH (16:19)
[2018-07-12] MEDS: ASPIRIN CHEWABLE 81 MG TABLET. PO SCH (16:19)
[2018-07-12] MEDS: amLODIPine BESYLATE 5 MG TABLET PO SCH (16:19)
[2018-07-12] MEDS: LISINOPRIL 20 MG TABLET PO SCH (16:19)
[2018-07-12] MEDS: hydroCHLOROthiazide 25 MG TABLET PO SCH (16:19)
[2018-07-12] MEDS ORDERED: ANTI-COAG MONITOR BY PHARMACY. MC PRN (16:30)
[2018-07-12] MEDS: APIXABAN 5 MG TABLET. PO SCH ×2 (21:00→21:11)
[2018-07-12] MEDS: Dulaglutide (Trulicity) 1.5 MG SQ SCH ×2 (21:00→21:13)
[2018-07-12] MEDS ORDERED: INSULIN GLARGINE 300 UNITS/3 ML INSULN.PEN. SQ SCH (22:45)
[2018-07-13 03:01] VITALS: BP 117/56
[2018-07-13 04:21] LABS: HEMATOCRIT 39.8 % (39.0-53.0); HEMOGLOBIN 13.4 g/dL (13.0-17.5)
[2018-07-13] MEDS ORDERED: MAGNESIUM HYDROXIDE 2,400 MG/30 ML ORAL.SUSP. PO PRN (06:00)
[2018-07-13 07:00] VITALS: BP 140/74
[2018-07-13] MEDS ORDERED: INSULIN GLARGINE 300 UNITS/3 ML INSULN.PEN. SQ SCH (08:00)
[2018-07-13] MEDS: LISINOPRIL 20 MG TABLET PO SCH (08:38)
[2018-07-13] MEDS: APIXABAN 5 MG TABLET. PO SCH (08:39)
[2018-07-13] MEDS: CHOLECALCIFEROL (VITAMIN D3) 1,000 UNIT TABLET PO SCH (08:39)
[2018-07-13] MEDS: amLODIPine BESYLATE 5 MG TABLET PO SCH (08:39)
[2018-07-13] MEDS: ASPIRIN CHEWABLE 81 MG TABLET. PO SCH (08:39)
[2018-07-13] MEDS: SENNOSIDES/DOCUSATE 8.6/50MG TABLET. PO SCH (08:40)
[2018-07-13] MEDS: hydroCHLOROthiazide 25 MG TABLET PO SCH (08:40)
[2018-07-13] MEDS: INSULIN LISPRO 300 UNITS/3 ML INSULN.PEN. SQ SCH ×3 (08:42→11:35)
[2018-07-13 11:12] VITALS: BP 150/83
[2018-07-13] MEDS ORDERED: INSULIN LISPRO 300 UNITS/3 ML INSULN.PEN. SQ SCH (12:00)
--- NOTE | 2018-07-13 12:45 | DISCH ---
DISCHARGE WITH HOME HEALTH DISCHARGE INFORMATION: Discharge Date: Jul 13, 2018 Final Diagnosis: Problems Medical Problems: (1) Fracture dislocation of left ankle Status: Acute Condition on Discharge: Stable CODE STATUS: Code Status: Full HOME HEALTH: Face to Face: I certify this patient is under my care and that I, or a nurse practitioner or physician's medical lab assistant working with me, had a face to face encounter that meets the physician face to face encounter requirements with this patient on 07/13/18 Medical Complications: DM Snf For: Assess & Educate Safety, Diabetic Care, Wound Care ( surgical ) Physical Therapy For: Evalulation/Treatment Occupational Therapy For: Evaluation/Treatment POST DISCHARGE ORDERS: Activity Instructions for Disc: Other, see below Weight Bearing Status after Di: Non weight bearing (6 weeks) DIET AFTER DISCHARGE: ADA FOLLOW-UP: Follow up with: Dr. Ozuna 1 week Follow Up With: primary care 2 weeks TREATMENT/EQUIPMENT ORDERS: Adaptive Equipment Issued: Front wheeled walker CERTIFICATION STATEMENT: Certification Statement: Certification Statement: Based on the above finding, I certify that this patient is confined to the home and needs intermittent [place] [facility] care, physical therapy and/or speech therapy, or continues to need occupational therapy.~ This patient is under my care, and I have initiated the establishment of the plan of care.~ This patient will be followed by myself or a community physician who will periodically review the plan of care. Home Meds Reported Medications Insulin Lispro (HUMALOG) 100 Unit/1 Ml Cartridge, 12 UNIT SQ NOON for high blood sugar, EACH 07/12/18 Insulin Lispro (HUMALOG) 100 Unit/1 Ml Cartridge, 14 UNIT SQ BID76 for high blood sugar, EACH 07/12/18 Apixaban (ELIQUIS) 5 Mg Tablet, 5 MG PO BID for blood thinner, TAB 07/12/18 Cholecalciferol (Vitamin D3) (VITAMIN D) 1,000 Unit Capsule, 2 CAP PO DAILY for vitamins supp, #30 CAP 3 Refills 07/12/18 Patiromer Calcium Sorbitex (Veltassa) 8.4 Gm Powd.pack, 8.4 GM PO DAILY for hyperkalemia, PKT 07/12/18 Dulaglutide (Trulicity) 1.5 Mg/0.5 Ml Pen.injctr, 1.5 MG SQ WEEKLY for diabetes , EACH 07/12/18 Lisinopril (LISINOPRIL) 40 Mg Tablet, 1 TAB PO DAILY for high blood pressure, # 30 TAB 5 Refills 07/12/18 Hydrochlorothiazide (HYDROCHLOROTHIAZIDE TABLET) 12.5 Mg Tablet, 25 MG PO DAILY for DIURETIC, TAB 0 Refills 07/12/18 Insulin Glargine,Hum.rec.anlog (Basaglar Kwikpen U-100) 100 Unit/1 Ml Insuln.pen , 30 UNIT SQ DAILY08 for diabetes, EACH 07/12/18 Atorvastatin Calcium (ATORVASTATIN CALCIUM) 40 Mg Tablet, 1 TAB PO DAILY for high cholesterol, #30 TAB 5 Refills 07/12/18 Aspirin (ASPIRIN) 81 Mg Tab.chew, 1 TAB PO DAILY for blood thin, #30 TAB 3 Refills 07/12/18 Amlodipine Besylate (AMLODIPINE BESYLATE) 5 Mg Tablet, 5 MG PO DAILY for High blood pressure, TAB 07/12/18 RADHA JAFFE MD Jul 13, 2018 12:45
--- NOTE | 2018-07-13 12:49 | PDOC3 ---
Discharge Summary Visit Information Date of Admission: Jul 12, 2018 Date of Discharge: Jul 13, 2018 Admitting Diagnosis: ankle fracture Final Diagnosis Open left ankle fracture dislocation. dislocation of the ankle joint with the talus dislocated laterally and posteriorly in relation to the tibial plafond. 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22 x10^6/uL (4.30-5.70) Hemoglobin 15.4 g/dL (13.0-17.5) Hematocrit 45.0 % (39.0-53.0) Mean Corpuscular Volume 86 fL (79-100) Mean Corpuscular Hemoglobin 30 pg (25-35) Mean Corpuscular Hemoglobin Concent 34 g/dL (31-37) Red Cell Distribution Width 14.4 % (11.5-14.5) Platelet Count 190 x10^3/uL (140-400) Neutrophils (%) (Auto) 68 % (31-73) Lymphocytes (%) (Auto) 20 % (24-48) Monocytes (%) (Auto) 8 % (0-9) Eosinophils (%) (Auto) 3 % (0-3) Basophils (%) (Auto) 1 % (0-3) Neutrophils # (Auto) 5.5 x10^3uL (1.8-7.7) Lymphocytes # (Auto) 1.6 x10^3/uL (1.0-4.8) Monocytes # (Auto) 0.6 x10^3/uL (0.0-1.1) Eosinophils # (Auto) 0.2 x10^3/uL (0.0-0.7) Basophils # (Auto) 0.1 x10^3/uL (0.0-0.2) Prothrombin Time 13.6 SEC (11.7-14.0) Prothromb Time International Ratio 1.1 (0.8-1.1) Activated Partial Thromboplast Time 35 SEC (24-38) Sodium Level 137 mmol/L (136-145) Potassium Level 4.1 mmol/L (3.5-5.1) Chloride Level 102 mmol/L (98-107) Carbon Dioxide Level 23 mmol/L (21-32) Anion Gap 12 (6-14) Blood Urea Nitrogen 47 mg/dL (8-26) Creatinine 1.8 mg/dL (0.7-1.3) Estimated GFR (Cockcroft-Gault) 37.9 BUN/Creatinine Ratio 26 (6-20) Glucose Level 122 mg/dL (70-99) Calcium Level 9.7 mg/dL (8.5-10.1) Magnesium Level 1.7 mg/dL (1.8-2.4) Total Bilirubin 0.4 mg/dL (0.2-1.0) Aspartate Amino Transf (AST/SGOT) 39 U/L (15-37) Alanine Aminotransferase (ALT/SGPT) 54 U/L (16-63) Alkaline Phosphatase 109 U/L (46-116) Creatine Kinase 364 U/L (39-308) Creatine Kinase MB (Mass) 13.9 ng/mL (0.0-3.6) Creatine Kinase MB Relative Index 3.8 % (0-4) Troponin I Quantitative < 0.017 ng/mL (0.000-0.055) Total Protein 7.6 g/dL (6.4-8.2) Albumin 3.8 g/dL (3.4-5.0) Albumin/Globulin Ratio 1.0 (1.0-1.7) Glucose (Fingerstick) 113 mg/dL (70-99) 140 mg/dL (70-99) 211 mg/dL (70-99) Test 07/12/18 16:14 07/12/18 21:30 07/13/18 02:45 07/13/18 07:57 Glucose (Fingerstick) 315 mg/dL (70-99) 322 mg/dL (70-99) 155 mg/dL (70-99) Hemoglobin 13.4 g/dL (13.0-17.5) Hematocrit 39.8 % (39.0-53.0) Mean Corpuscular Hemoglobin Concent 34 g/dL (31-37) Test 07/13/18 11:24 Glucose (Fingerstick) 88 mg/dL (70-99) Laboratory Tests Test 07/12/18 16:14 07/12/18 21:30 07/13/18 02:45 07/13/18 07:57 Glucose (Fingerstick) 315 mg/dL (70-99) 322 mg/dL (70-99) 155 mg/dL (70-99) Hemoglobin 13.4 g/dL (13.0-17.5) Hematocrit 39.8 % (39.0-53.0) Mean Corpuscular Hemoglobin Concent 34 g/dL (31-37) Test 07/13/18 11:24 Glucose (Fingerstick) 88 mg/dL (70-99) Brief Hospital Course Mr. Mcwilliams is a 68 old male, fell on ice, open fracture. to OR on 07/13, Dr. 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 PT and OT eval, good mobility Discharge Information Condition at Discharge: Improved Follow Up: Weeks Disposition/Orders: D/C to Home w/ HH Scheduled Amlodipine Besylate (Amlodipine Besylate) 5 Mg Tablet, 5 MG PO DAILY for High blood pressure, (Reported) Entered as Reported by: MATTHEW BANKS on 07/12/18552 Last Taken: Unknown Dose on 07/11/18 Last Action: Continued on 07/12/18 1528 by RAYMOND GAMEZ MD Apixaban (Eliquis) 5 Mg Tablet, 5 MG PO BID for blood thinner, (Reported) Entered as Reported by: MATTHEW BANKS on 07/12/18552 Last Taken: Unknown Dose on 07/11/18 Last Action: Continued on 07/12/18 1546 by EMILIANO SEGAL Aspirin (Aspirin) 81 Mg Tab.chew, 1 TAB PO DAILY for blood thin, #30 Ref 3 ( Reported) Entered as Reported by: MATTHEW BANKS on 07/12/18552 Last Taken: Unknown Dose on 07/11/18 Last Action: Continued on 07/12/18 152 by RAYMOND GAMEZ MD Atorvastatin Calcium (Atorvastatin Calcium) 40 Mg Tablet, 1 TAB PO DAILY for high cholesterol, #30 Ref 5 (Reported) Entered as Reported by: MATTHEW BANKS on 07/12/18552 Last Taken: Unknown Dose on 07/11/18 Last Action: Continued on 07/12/181527 by RAYMOND GAMEZ MD Cholecalciferol (Vitamin D3) (Vitamin D) 1,000 Unit Capsule, 2 CAP PO DAILY for vitamins supp, #30 Ref 3 (Reported) Entered as Reported by: MATTHEW BANKS on 07/12/18552 Last Taken: Unknown Dose on 07/11/18 Last Action: Converted on 07/12/181527 by RAYMOND GAMEZ MD Dulaglutide (Trulicity) 1.5 Mg/0.5 Ml Pen.injctr, 1.5 MG SQ WEEKLY for diabetes, (Reported) Entered as Reported by: MATTHEW BANKS on 07/12/18552 Last Taken: Unknown Dose on 07/05/18 Last Action: Converted on 07/12/181527 by RAYMOND GAMEZ MD Hydrochlorothiazide (Hydrochlorothiazide Tablet) 12.5 Mg Tablet, 25 MG PO DAILY for DIURETIC, Ref 0 (Reported) Entered as Reported by: MATTHEW BANKS on 07/12/18552 Last Taken: Unknown Dose on 07/11/18 Last Action: Converted on 07/12/181527 by RAYMOND GAMEZ MD Insulin Glargine,Hum.rec.anlog (Basaglar Kwikpen U-100) 100 Unit/1 Ml Insuln.pen , 30 UNIT SQ DAILY08 for diabetes, (Reported) Entered as Reported by: MATTHEW BANKS on 07/12/18552 Last Taken: Unknown Dose on 07/11/18 Last Action: Continued on 07/12/181527 by RAYMOND GAMEZ MD Insulin Lispro (Humalog) 100 Unit/1 Ml Cartridge, 14 UNIT SQ BID76 for high blood sugar, (Reported) Entered as Reported by: MATTHEW BANKS on 07/12/18552 Last Taken: Unknown Dose on Unknown Date & Time Last Action: Converted on 07/12/181527 by RAYMOND GAMEZ MD Insulin Lispro (Humalog) 100 Unit/1 Ml Cartridge, 12 UNIT SQ NOON for high blood sugar, (Reported) Entered as Reported by: MATTHEW BANKS on 07/12/18552 Last Taken: Unknown Dose on Unknown Date & Time Last Action: Converted on 07/12/181527 by RAYMOND GAMEZ MD Lisinopril (Lisinopril) 40 Mg Tablet, 1 TAB PO DAILY for high blood pressure, # 30 Ref 5 (Reported) Entered as Reported by: MATTHEW BANKS on 07/12/18552 Last Taken: Unknown Dose on 07/11/18 Last Action: Continued on 07/12/181527 by RAYMOND GAMEZ MD Patiromer Calcium Sorbitex (Veltassa) 8.4 Gm Powd.pack, 8.4 GM PO DAILY for hyperkalemia, (Reported) Entered as Reported by: MATTHEW BANKS on 07/12/18552 Last Taken: Unknown Dose on 07/11/18 Last Action: Converted on 07/12/181527 by RAYMOND GAMEZ MD Patient Instructions Patient Instructions > 30 min face to face RADHA JAFFE MD Jul 13, 2018 12:49
--- NOTE | 2018-07-13 14:15 | NUR ---
SW following for discharge planning. Discussed with RN. RN met with pt and pt's at bedside. Pt agreeable to discharging home with home [facility] and would like [facility]. SW faxed discharge and referral to [facility]. Pt choice and rights letter signed and placed on chart.
[2018-07-13 15:15] VITALS: BP 141/71
--- NOTE | 2018-07-13 15:40 | NUR ---
Discharge instructions and follow up needed was discussed with patient and family, they verbalized understanding. Pt was then escorted via wheelchair by Urbano TRUJILLO and accompanied by his and daughter.
[2018-07-13] MEDS ORDERED: BISACODYL 10 MG SUPP.RECT. PR PRN (16:00)
[2018-07-13] MEDS ORDERED: ATORVASTATIN CALCIUM 40 MG TABLET. PO SCH (21:00)
--- NOTE | 2018-07-14 11:34 | EKG ---
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
== END 2018-07-13 15:43 | disposition home health service (06) | DRG 494 ==
LOC: ER 23:00 → 4 NORTH 07-12 02:20
PROVIDERS: ADMIT Hospitalist; ATTEND Hospitalist
PROC: 0QSK04Z Reposition Left Fibula with Internal Fixation Device, Open Approach (ICD-10-PCS; principal; 2018-07-12 05:00)
DX: S92.142B Displaced dome fracture of left talus, initial encounter for open fracture (principal); E66.9 Obesity, unspecified; F17.210 Nicotine dependence, cigarettes, uncomplicated; E11.40 Type 2 diabetes mellitus with diabetic neuropathy, unspecified; I10 Essential (primary) hypertension; S93.439A Sprain of tibiofibular ligament of unspecified ankle, initial encounter; W00.0XXA Fall on same level due to ice and snow, initial encounter; Y93.89 Activity, other specified; Y92.89 Other specified places as the place of occurrence of the external cause; Y99.8 Other external cause status; Z68.38 Body mass index [BMI] 38.0-38.9, adult; Z86.718 Personal history of other venous thrombosis and embolism; Z79.01 Long term (current) use of anticoagulants; Z82.49 Family history of ischemic heart disease and other diseases of the circulatory system
CPT/HCPCS: 27788; 36415; 70450; 71045; 72125; 73600; 73610; 76001; 80053; 82553; 82962; 83735; 84484; 85014; 85018; 85025; 85610; 85730; 90471; 90715; 93005; 96365; 96366; C1713; J0330; J0690; J0696; J1100; J1644; J1815; J1885; J2001; J2405; J2704; J3010; J3490; J7030; J7120; 97110; 97116; 97530; 97535; 99285-25; A4461

== ENCOUNTER 2018-09-25 09:26 | Day surgery (SDC) | payer MEDICARE ==
[~2018-09-25] VITALS: Ht 193 cm; Wt 131.5 kg
[~2018-09-25 09:26] MED LIST: AMLO5TAB10 PO; APIX5TAB PO; ASPI-630 PO; ATOR40TA59 PO; CHOL100013 PO; DULA1.5P SQ; HYDR12.58 PO; HYDROmorphone 2 MG/ML VIAL IV PRN; INSU100C SQ; INSU100I32 SQ; IV RINGERS,LACTATED 1000ML 1,000 ML IV SCH; LIDOCAINE 1% PF 2 ML VIAL. ID PRN; LISI-130 PO; MORPHINE SULFATE 2 MG/ML VIAL. IV PRN; ONDANSETRON PF 4 MG/2 ML VIAL. IV PRN; PATI8.4P PO; PROCHLORPERAZINE 10 MG/2 ML VIAL. IV PRN; ceFAZolin 2GM PREMIX 2 GM/50 ML BAG IV ONE; fentaNYL PF VIAL 100 MCG/2 ML VIAL IV PRN
[2018-09-25] MEDS ORDERED: PROPOFOL 20 ML IV ONE (09:33)
[2018-09-25] MEDS ORDERED: LIDOCAINE 2% PF 5 ML VIAL. ONE (09:33)
[2018-09-25] MEDS ORDERED: ONDANSETRON PF 4 MG/2 ML VIAL. ONE (09:33)
[2018-09-25] MEDS ORDERED: DEXAMETHASONE SOD PHOS 20 MG/5 ML VIAL. ONE (09:33)
[2018-09-25] MEDS ORDERED: MIDAZOLAM HCL/PF 2 MG/2 ML VIAL. ONE (09:33)
[2018-09-25] MEDS ORDERED: fentaNYL PF VIAL 100 MCG/2 ML VIAL ONE (09:34)
[2018-09-25] MEDS ORDERED: ceFAZolin SODIUM 1 GM VIAL ONE (10:41)
[2018-09-25] MEDS ORDERED: SEVOFLURANE 31 TO 60 MINUTES. IH ONE (11:14)
--- NOTE | 2018-09-25 11:19 | DISCH ---
DISCHARGE INSTRUCTIONS Condition on Discharge Condition on Discharge: Stable Activity After Discharge Activity Instructions for Disc: Activity as tolerated Bathing Instructions: No Tub Bath until see Driving Instructions after Dis: Do not drive today Weight Bearing Status after Di: As tolerated Diet after Discharge Diet after Discharge: Diabetic No Calorie Level Diet Texture: Regular Wound Incision Care Wound/Incision Care: Ice to area for comfort, Keep wound elevated, Change dressing (May remove dressing in or days may then shower no soaking) Checks after Discharge Checks after discharge: Check blood sugar, ac/hs Contacting the DRDavid after DC Call your doctor for: Concerns you may have Follow-Up Follow up with: Dr. Ozuna 10 days Treatment/Equipment after DC Adaptive Equipment Issued: None CHARLES OZUNA MD Sep 25, 2018 11:19
--- NOTE | 2018-09-25 11:23 | PDOC4 ---
Operative Note Operative Note Date of surgery: 09/25/2018 Reoperative diagnosis: Retained syndesmotic screw hardware left ankle Postoperative diagnosis: Same Operative procedure: Removal syndesmotic screws 2 left ankle Surgeon: Laith Anesthesia: Gen. Estimated blood loss: 15 mL Competitions: None Operative indications: Patient underwent fixation of a open ankle fracture about 3 months ago underwent syndesmotic fixation which we had discussed later needs to come out to allow regular motion of the fibula after the ligament healing. We talked about the possibility of infection medical or other anesthetic complications but no expected weightbearing restricted changes. He wishes to proceed with surgical evaluation and treatment for screw removal. Operative text: Patient was identified procedure verified patient placed in the supine position on the operating table. After adequate amounts of general anesthesia were administered the left lower extremity was prepped and draped in standard sterile fashion and after timeout was performed patient procedure identified the incision area was localized under radiographic fluoroscopic guidance dissection carried out down to the lateral plate and both syndesmotic screws were removed without incident thorough irrigation carried out normal saline solution bleeding points controlled by electrocautery closure accomplished with nylon suture sterile dressings were applied patient was returned to recovery room in stable condition having tolerated procedure well CHARLES HUERTAS MD Sep 25, 2018 11:22
[2018-09-25] MEDS ORDERED: HYDROcodone/APAP 7.5/325MG 1 TAB TABLET PO ONE (11:45)
[2018-09-25 12:15] VITALS: BP 149/75
== END 2018-09-25 12:20 | disposition home or self-care (01) ==
LOC: SURG 09:26
PROVIDERS: ATTEND Orthopaedic Surgery
DX: T84.89XA Other specified complication of internal orthopedic prosthetic devices, implants and grafts, initial encounter (principal); I12.9 Hypertensive chronic kidney disease with stage 1 through stage 4 chronic kidney disease, or unspecified chronic kidney disease; E11.22 Type 2 diabetes mellitus with diabetic chronic kidney disease; N18.9 Chronic kidney disease, unspecified; E78.5 Hyperlipidemia, unspecified; Z86.718 Personal history of other venous thrombosis and embolism; E11.40 Type 2 diabetes mellitus with diabetic neuropathy, unspecified; Z98.890 Other specified postprocedural states; Z87.891 Personal history of nicotine dependence; Z72.89 Other problems related to lifestyle; Z79.82 Long term (current) use of aspirin; Z79.84 Long term (current) use of oral hypoglycemic drugs; Z79.899 Other long term (current) drug therapy; Y83.1 Surgical operation with implant of artificial internal device as the cause of abnormal reaction of the patient, or of later complication, without mention of misadventure at the time of the procedure; Y92.89 Other specified places as the place of occurrence of the external cause
CPT/HCPCS: 20680; 76000; 82962; A7015; J0696; J1100; J2001; J2250; J2405; J2704; J3010; J0690

== ENCOUNTER → 2019-02-03 | Outpatient (CLI) | payer MEDICARE ==
[~2019-02-03] MED LIST changes: -HYDROmorphone 2 MG/ML VIAL IV PRN; -IV RINGERS,LACTATED 1000ML 1,000 ML IV SCH; -LIDOCAINE 1% PF 2 ML VIAL. ID PRN; -MORPHINE SULFATE 2 MG/ML VIAL. IV PRN; -ONDANSETRON PF 4 MG/2 ML VIAL. IV PRN; -PROCHLORPERAZINE 10 MG/2 ML VIAL. IV PRN; -ceFAZolin 2GM PREMIX 2 GM/50 ML BAG IV ONE; -fentaNYL PF VIAL 100 MCG/2 ML VIAL IV PRN
[2019-02-03 11:52] LABS: BASO # 0.1 x10^3/uL (0.0-0.2); BASO % 1 % (0-3); EOS # 0.2 x10^3/uL (0.0-0.7); EOS % 3 % (0-3); HEMATOCRIT 46.8 % (39.0-53.0); HEMOGLOBIN 15.7 g/dL (13.0-17.5); LYMPH # 1.3 x10^3/uL (1.0-4.8); LYMPH % 20 % (24-48); MEAN CORPUSCULAR HEMOGLOBIN 29 pg (25-35); MEAN CORPUSCULAR HGB CONC 34 g/dL (31-37); MEAN CORPUSCULAR VOLUME 85 fL (79-100); MONO # 0.5 x10^3/uL (0.0-1.1); MONO % 7 % (0-9); NEUT # 4.5 x10^3/uL (1.8-7.7); NEUT % 69 % (31-73); PLATELET COUNT 234 x10^3/uL (140-400); RED CELL DISTRIBUTION WIDTH 15.6 % (11.5-14.5); WHITE BLOOD COUNT 6.6 x10^3/uL (4.0-11.0)
[2019-02-03 12:15] LABS: C-REACTIVE PROTEIN 1.4 mg/L (0-3.3); CALCIUM 9.6 mg/dL (8.5-10.1); CREATININE 2.1 mg/dL (0.7-1.3); GFR 31.8; POTASSIUM 4.7 mmol/L (3.5-5.1)
== END | disposition home or self-care (01) ==
LOC: LAB 11:26
PROVIDERS: ATTEND Physician Assistant
DX: T14.8XXA Other injury of unspecified body region, initial encounter (principal)
CPT/HCPCS: 36415; 80048; 85025; 86140

== ENCOUNTER 2019-06-29 06:58 | Day surgery (SDC) | payer MEDICARE ==
[~2019-06-29] VITALS: Ht 193 cm; Wt 131.0 kg
[~2019-06-29 06:58] MED LIST changes: +DULO60CA6 PO; +RIVA20TA2 PO
[2019-06-29] MEDS ORDERED: ONDANSETRON PF 4 MG/2 ML VIAL. IV PRN (07:00)
[2019-06-29] MEDS ORDERED: IV RINGERS,LACTATED 1000ML 1,000 ML IV SCH (07:00)
[2019-06-29] MEDS ORDERED: MORPHINE SULFATE 2 MG/ML VIAL. IV PRN (07:00)
[2019-06-29] MEDS ORDERED: PROCHLORPERAZINE 10 MG/2 ML VIAL. IV PRN (07:00)
[2019-06-29] MEDS ORDERED: HYDROmorphone 2 MG/ML VIAL IV PRN (07:00)
[2019-06-29] MEDS ORDERED: LIDOCAINE 1% PF 2 ML VIAL. ID PRN (07:00)
[2019-06-29] MEDS ORDERED: fentaNYL PF VIAL 100 MCG/2 ML VIAL IV PRN ×2 (07:00)
[2019-06-29] MEDS ORDERED: HYDR-3165 PO (07:44)
[2019-06-29] MEDS ORDERED: SULF1TAB24 PO (07:52)
--- NOTE | 2019-06-29 07:55 | DISCH ---
DISCHARGE INSTRUCTIONS Condition on Discharge Condition on Discharge: Stable Activity After Discharge Activity Instructions for Disc: Activity as tolerated Bathing Instructions: No Tub Bath until see Driving Instructions after Dis: Do not drive today Weight Bearing Status after Di: As tolerated Diet after Discharge Diet after Discharge: Diabetic No Calorie Level Diet Texture: Regular Swallowing Supervision: None needed Wound Incision Care Wound/Incision Care: Ice to area for comfort, Keep wound elevated, Change dressing (May remove dressing in 3 days may then shower, cover if any drainage is observed no soaking until sutures removed) Checks after Discharge Checks after discharge: Check blood sugar, ac/hs Contacting the DRDavid after DC Call your doctor for: Concerns you may have Follow-Up Follow up with: Dr. Ozuna 10 days Treatment/Equipment after DC Adaptive Equipment Issued: None Warfarin Follow-Up Warfarin Follow UP: anticoagulation follow-up unnecessary,normal Xarelto dose resumed today CHARLES OZUNA MD Jun 29, 2019 07:55
[2019-06-29] MEDS ORDERED: LIDOCAINE 2% PF 5 ML VIAL. ONE (08:02)
[2019-06-29] MEDS ORDERED: fentaNYL PF VIAL 100 MCG/2 ML VIAL ONE (08:02)
[2019-06-29] MEDS ORDERED: PROPOFOL 20 ML IV ONE (08:02)
[2019-06-29 08:08] LABS: BASO # 0.1 x10^3/uL (0.0-0.2); BASO % 1 % (0-3); EOS # 0.2 x10^3/uL (0.0-0.7); EOS % 3 % (0-3); HEMATOCRIT 47.4 % (39.0-53.0); HEMOGLOBIN 15.8 g/dL (13.0-17.5); LYMPH # 1.4 x10^3/uL (1.0-4.8); LYMPH % 17 % (24-48); MEAN CORPUSCULAR HEMOGLOBIN 29 pg (25-35); MEAN CORPUSCULAR HGB CONC 33 g/dL (31-37); MEAN CORPUSCULAR VOLUME 86 fL (79-100); MONO # 0.6 x10^3/uL (0.0-1.1); MONO % 7 % (0-9); NEUT # 6.2 x10^3/uL (1.8-7.7); NEUT % 73 % (31-73); PLATELET COUNT 214 x10^3/uL (140-400); RED CELL DISTRIBUTION WIDTH 14.7 % (11.5-14.5); WHITE BLOOD COUNT 8.5 x10^3/uL (4.0-11.0)
--- NOTE | 2019-06-29 08:42 | HP ---
ADMIT DATE: 06/29/2019 CHIEF COMPLAINT: Left lateral ankle wound, intermittently and persistently draining. HISTORY OF PRESENT ILLNESS: The patient is familiar to me from treatment of an open ankle fracture dislocation that appeared to have an uncomplicated history initially course after initial treatment of his fracture dislocation, but had persistent drainage after removal of the syndesmotic screw, which has been an off and on problem despite antibiotics. He has since had healing of the segmental fracture of the lateral malleolus and we had previously discussed the fact that this seems to be off and on healing and then erupting again with ongoing drainage and the fact that the hardware can actually hide some infection in the area around the nonliving metal and that combined with his diabetes make it very, very difficult to eradicate anything that may be deep seated around the hardware. He has no constitutional symptoms of this. PAST MEDICAL HISTORY: Significant for history of DVT for which he is normally on Xarelto, it was just stopped 2 days ago. He has type 2 diabetes, hypertension, hyperlipidemia and chronic kidney disease. PAST SURGICAL HISTORY: ORIF of his left ankle in 06/2018, removal of syndesmotic screws on 09/25/2018 and history of previous bilateral hand surgery. FAMILY HISTORY: His mother and dad are both . No major medical problems. SOCIAL HISTORY: He quit smoking over 10 years ago. Occasional social alcohol consumption. Denies drug use. MEDICATIONS: List is reviewed. ALLERGIES: He has no known drug allergies. REVIEW OF SYSTEMS: No fever, chills, chest pain, shortness of breath, recent illness or constitutional symptoms whatsoever. PHYSICAL EXAMINATION: VITAL SIGNS: Per admission sheet. HEENT: Atraumatic, normocephalic. HEART: Regular rate and rhythm. LUNGS: Clear to auscultation bilaterally. ABDOMEN: Benign. EXTREMITIES: Examination of the left ankle reveals over the area where his previous syndesmotic screw removal incision was that he has a scabbed area, no redness or erythema around it. Currently, really no significant tenderness on palpation. His ankle has full range of motion, no instability. He has a laceration from the previous open ankle fracture dislocation medially. He does have some stocking distribution neuropathy of bilateral lower extremities. IMPRESSION: History of fracture-dislocation of left ankle, type 2 diabetes and off and on open wound since previous treatment of his injury and subsequent syndesmotic screw removal. TREATMENT PLAN: I had gone over with him and his the rationale for removal of the hardware including the fact that this does seem to be persistent despite multiple courses of antibiotics, most recently Keflex given him by the Infectious Disease doctor. I went over with him again the rationale for removing the hardware since it has outlived its usefulness, thus stabilizing the healing bone that is now healed and it could be hiding infection around the area of the plate. Our treatment plan at this point is to remove the plate and to culture the area, starting him on some empiric antibiotics, awaiting cultures. I do not expect any activity restrictions other than what it would take to heal up the incision as without complication and I would put him right back on his Xarelto blood thinner today after surgery. We had gone over the risks of possible wound complication or nonhealing, medical or other anesthetic complications among others. All his questions were answered. He does wish to proceed with surgical evaluation and treatment on an outpatient basis today. CHARLES HUERTAS MD DR: GISSEL/kirsty JOB#: [id number] / [id number]
[2019-06-29] MEDS: INSULIN LISPRO 100 UNIT/ML 3ML VIAL for OP,RR ONLY. SQ PRN ×2 (09:34→11:32)
[2019-06-29] MEDS ORDERED: DEXAMETHASONE SOD PHOS 20 MG/5 ML VIAL. ONE (09:45)
[2019-06-29] MEDS ORDERED: SEVOFLURANE 31 TO 60 MINUTES. IH ONE (09:45)
[2019-06-29] MEDS ORDERED: IV NORMAL SALINE 1000ML BAG 1,000 ML IV SCH (09:45)
[2019-06-29] MEDS ORDERED: ONDANSETRON PF 4 MG/2 ML VIAL. ONE (10:04)
[2019-06-29] MEDS ORDERED: PHENYLEPHRINE in 0.9% NACL PF 1 MG/10 ML SYRINGE. IV ONE (10:23)
[2019-06-29] MEDS ORDERED: ceFAZolin SODIUM 3 GM in IV DEXTROSE 5% 100ML 100 ML IV PRN (10:30)
[2019-06-29] MEDS ORDERED: HYDROcodone/APAP 7.5/325MG 1 TAB TABLET PO ONE ×2 (11:00→11:15)
[2019-06-29 11:45] VITALS: BP 134/75
--- NOTE | 2019-06-29 12:45 | PDOC4 ---
Operative Note Operative Note Date of surgery: 06/29/2019 Preoperative diagnosis: Deep persistent infection following ORIF of an open left ankle fracture Postoperative diagnosis: Same with purulent discharge communicating with the plate and screw hardware from distal fibula Operative procedure: Removal of the distal fibular plate and locking screw armond licea surgeon: Laith Anesthesia: Gen. Estimated blood loss: 25 mL Complications: None Cultures: Cultures of the purulent fluid were sent followed by deep tissue underneath the plate following hardware removal as a second culture Operative indications: Please see my orthopedic clinic note and preoperative history and physical for details operative indications noting that Karlos underwent ORIF of an open left ankle fracture and underwent planned removal of syndesmotic screw fixation at a later procedure about 3 months postoperatively and had persistent drainage from that surgical site despite ongoing courses of oral antibiotics and infectious disease involvement. I had gone over with him the fact that his fibula is healed the hardware is outdone its usefulness at this point could be harboring ongoing infection particularly given his diabetes and severe initial injury. We talked about removal of hardware and planned cultures with the administration of empiric antibiotics to start with adjusting based on cultures and the possibility of wound healing difficulties nerve or blood vessel damage medical or other anesthetic consultations among others all his questions were answered he agrees to proceed with surgical evaluation and treatment. Operative text: Patient was identified procedure verified patient placed in the supine position on the operating table. The left lower extremity was prepped and draped with a thigh tourniquet. After timeout was performed patient procedure identified and verified the thigh tourniquet was inflated to 300 mmHg and an incision was made initially at the scabbed area where purulent drainage was returned and was cultured. The incision was extended proximally and distally to allow access to the plate and screw hardware for dissection and removal. Hardware was removed without difficulty the fibula was noted to be healed post- removal fluoroscopy noted a stable ankle joint and intact ankle joint mortise and verified complete removal of the hardware. Deep cultures of the tissue between the bone and the plate were placed in the second culture tube thorough irrigation was carried out normal saline solution debridement carried out sharply of the bone periosteum area with rongeurs. Bleeding points controlled by electrocautery additional irrigation with normal saline solution and closure was accomplished with buried 2-0 PDS suture skin closure with kevin sterile soft dressings were applied toes were noted be warm pink following deflation of tourniquet patient was returned to recovery room in stable condition having tolerated procedure well. He was sent home on him. Bactrim double strength twice daily pending cultures and the except ability of this was checked with the pharmacy based on his renal function prior to discharge CHARLES HUERTAS MD Jun 29, 2019 12:45
== END 2019-06-29 12:13 | disposition home or self-care (01) ==
LOC: SURG 06:58
PROVIDERS: ATTEND Orthopaedic Surgery
DX: T84.625A Infection and inflammatory reaction due to internal fixation device of left fibula, initial encounter (principal); E11.22 Type 2 diabetes mellitus with diabetic chronic kidney disease; I12.9 Hypertensive chronic kidney disease with stage 1 through stage 4 chronic kidney disease, or unspecified chronic kidney disease; N18.9 Chronic kidney disease, unspecified; E78.00 Pure hypercholesterolemia, unspecified; G47.30 Sleep apnea, unspecified; E66.8 Other obesity; Z68.38 Body mass index [BMI] 38.0-38.9, adult; Y83.8 Other surgical procedures as the cause of abnormal reaction of the patient, or of later complication, without mention of misadventure at the time of the procedure; Y92.89 Other specified places as the place of occurrence of the external cause; Z86.718 Personal history of other venous thrombosis and embolism; Z87.891 Personal history of nicotine dependence; Z79.84 Long term (current) use of oral hypoglycemic drugs
CPT/HCPCS: 20680; 36415; 76000; 82962; 85025; 87071; 87075; 87116; A7015; J1100; J2001; J2370; J2405; J2704; J3010; J7030; 87102